=== PATIENT | female | born 1970 | race Caucasian/White ===

== ENCOUNTER 2022-06-01 12:03 | Inpatient (IN) | payer OTHER ==
[~2022-06-01] VITALS: Ht 152.4 cm; Wt 64.9 kg
[2022-06-01 12:59] VITALS: BP 125/73
[2022-06-01 14:16] LABS: BASOPHILS # (AUTO) 0.2 K/uL (0.00-0.22)
[2022-06-01 14:23] LABS: BASOPHILS % (AUTO) 1.1 % (0.0-2.0); HEMATOCRIT 33.4 % (36-48); HEMOGLOBIN 10.6 g/dL (12.0-16.0); LYMPHOCYTES # (AUTO) 0.3 K/uL (2.5-16.5); LYMPHOCYTES % (AUTO) 1.4 % (20.5-51.1); MEAN CORPUSCULAR HEMOGLOBIN 25 pg (27-31); MEAN CORPUSCULAR HGB CONC 32 g/dL (33-37); MEAN CORPUSCULAR VOLUME 79.8 fL (80-94); MONOCYTES % (AUTO) 4.7 % (1.7-9.3); NEUTROPHILS # (AUTO) 20.5 K/uL (1.8-7.7); NEUTROPHILS % (AUTO) 92.8 % (42.2-75.2); PLATELET COUNT (AUTO) 184 K/uL (140-450); RED BLOOD CELL COUNT(AUTO) 4.18 MIL/uL (4.20-5.40)
[2022-06-01 14:24] LABS: CREATININE 0.8 mg/dL (0.6-1.3); TOTAL BILIRUBIN 0.5 mg/dL (0.0-1.0)
[2022-06-01] MEDS ORDERED: cefTRIAXone 2,000 MG in DEXTROSE 5% 100 ML IV ONE (15:40)
[2022-06-01] MEDS ORDERED: NACL 0.9% 2,000 ML IV ONE (15:40)
[2022-06-01] MEDS ORDERED: cefTRIAXone 2,000 MG VIAL ONE (15:48)
[2022-06-01 16:39] LABS: APPEARANCE,URINE CLEAR (CLEAR); BILIRUBIN,URINE NEGATIVE (NEGATIVE); BLOOD, URINE 2+ (NEGATIVE); COLOR,URINE YELLOW (YELLOW); LEUKOCYTE ESTERASE ,URINE NEGATIVE (NEGATIVE); NITRITE, URINE NEGATIVE (NEGATIVE); UGLUCOSE NEGATIVE (NEGATIVE)
[2022-06-01 16:51] LABS: RBC,URINE 11-20 (MOD) /HPF (0-5); WBC,URINE 0-5 /HPF (0-5)
[2022-06-01] MEDS ORDERED: POTASSIUM CHLORIDE 10 MEQ TABER PO ONE (18:20)
[2022-06-01] MEDS ORDERED: CEPH-588 PO (18:22)
--- NOTE | 2022-06-01 18:51 | NUR ---
PATIENT IS TACHYCARDIC AND FEBRILE 101.7. DR. FLYNN SPOKE WITH THE PATIENT. PLAN IS FOR PATIENT TO STAY FOR IV ANTIBIOTIC INSTEAD TO DISCHARGE HOME. PATIENT IS AGREEABLE WITH PLAN OF CARE.
[2022-06-01] MEDS: NACL 0.9% 1,000 ML IV SCH (19:25)
[2022-06-01] MEDS ORDERED: ONDANSETRON 4 MG/2 ML VIAL IVP PRN (19:25)
[2022-06-01] MEDS ORDERED: HYDROcodone/APAP 5/325 MG 1 TAB TAB PO PRN (19:25)
[2022-06-01] MEDS ORDERED: MAGNESIUM OXIDE 400 MG TAB PO PRN (19:25)
[2022-06-01] MEDS ORDERED: KCL 20 MEQ IN 100 mL PREMIX 200 ML IV PRN (19:25)
[2022-06-01] MEDS ORDERED: MORPHINE SULFATE 4 MG/ML SYR IVP PRN (19:25)
--- NOTE | 2022-06-01 19:30 | NUR ---
51yo F to be admitted for urosepsis. Awake alert and oriented x 4. No complaints of pain. Pt tachycardia to 125, afebrile now. VS otherwise stable. Waiting on admitting bed.
[2022-06-01] MEDS ORDERED: cefTRIAXone 1,000 MG VIAL ONE (20:27)
--- NOTE | 2022-06-01 21:15 | NUR ---
Report to JANNETTE Sandhu. To be admitted to room 119A. All questions answered
--- NOTE | 2022-06-01 21:30 | NUR ---
RECEIVED PATIENT VIA GURNEY FROM ER. PT IS ALERT ORIENTED X4, NO COMPLAIN OF PAIN AT THIS TIME, PIV INTACT AND PATENTADMITTED D/T FEVER,CHILLS,HEADACHE
[2022-06-01] MEDS ORDERED: ACETAMINOPHEN 325 MG TAB PO PRN (22:15)
[2022-06-02] VITALS: BP 137/67
[2022-06-02 04:00] VITALS: BP 126/79
[2022-06-02 05:49] LABS: BASOPHILS % (AUTO) 0.1 % (0.0-2.0); HEMATOCRIT 31.2 % (36-48); LYMPHOCYTES # (AUTO) 0.8 K/uL (2.5-16.5); LYMPHOCYTES % (AUTO) 5.5 % (20.5-51.1); MEAN CORPUSCULAR HEMOGLOBIN 26 pg (27-31); MEAN CORPUSCULAR HGB CONC 32 g/dL (33-37); MEAN CORPUSCULAR VOLUME 79.9 fL (80-94); MONOCYTES # (AUTO) 0.4 K/uL (0.8-1.0); MONOCYTES % (AUTO) 2.6 % (1.7-9.3); NEUTROPHILS # (AUTO) 13.9 K/uL (1.8-7.7); NEUTROPHILS % (AUTO) 91.8 % (42.2-75.2); PLATELET COUNT (AUTO) 113 K/uL (140-450); RED CELL DISTRIBUTION WIDTH 26.4 % (11.6-13.7); WHITE BLOOD COUNT (AUTO) 15.2 K/uL (4.8-10.8)
--- NOTE | 2022-06-02 07:21 | NUR ---
ENDORSED PT TO AM NURSE FOR CONTINUITY OF CARE. PT IS STABLE
[2022-06-02 07:27] LABS: ALBUMIN 3.4 g/dL (3.4-5.0); CARBON DIOXIDE 23.1 mmol/L (21-32); CREATININE 0.7 mg/dL (0.6-1.3); MAGNESIUM 1.8 mg/dL (1.8-2.4); POTASSIUM 3.1 mmol/L (3.5-5.1); TOTAL BILIRUBIN 0.3 mg/dL (0.0-1.0)
--- NOTE | 2022-06-02 07:29 | NUR ---
RECEIVED PATIENT FROM PULLMAN CAR REPAIRER NURSE,PATIENT IS LAYING IN BED,VERBALLY RESPONSIVE,ALL SAFETY MEASURES IN PLACE.SCALL LIGHT WITHIN REACH.POC DISCUSSED.WILL CONTINUE TO MONITOR.
[2022-06-02] MEDS: NACL 0.9% 1,000 ML IV SCH ×2 (07:55→20:25)
[2022-06-02 08:00] VITALS: BP 130/81
[2022-06-02] MEDS: POTASSIUM CHLORIDE 10 MEQ TABER PO PRN (09:08)
--- NOTE | 2022-06-02 09:08 | NUR ---
PATIENT HAS BEEN SCREENED AND CATEGORIZED MODERATE NUTRITION RISK. PATIENT WILL BE SEEN WITHIN 3-5 DAYS OF ADMISSION. / REVIEWED BY HEATH BALDERAS RD
[2022-06-02 12:00] VITALS: BP 139/76
[2022-06-02] MEDS ORDERED: CALCIUM GLUC 1 GM/50 mL NS BAG 100 ML IV SCH (12:00)
--- NOTE | 2022-06-02 12:11 | NUR ---
FREQUENT ROUNDS DONE.ON NS 80 ML/HR.NOTIFIED MD REGARDING THE LOW K./CA LEVEL.ADMINISTERED MEDICATIONS PER PRN ORDERS.
[2022-06-02 16:00] VITALS: BP 130/75
--- NOTE | 2022-06-02 19:30 | NUR ---
ENDORSED PATIENT TO SAUSAGE STUFFER NURSE FOR THE CONTINUITY OF CARE.
--- NOTE | 2022-06-02 19:31 | NUR ---
RECEIVED PATIENT SITTING ON THE CHAIR, PATIENT IS AWAKE, ALERT AND ORIENTED, FAMILY AT BEDSIDE, NO SIGNS OF DISTRESS NOTED, DENIES PAIN UPON ASSESSMENT. IV SITE ON LEFT AC RUNNING NS @80ML/HR. CALL LIGHT WITHIN REACH.
[2022-06-02 20:00] VITALS: BP 128/72
--- NOTE | 2022-06-02 21:30 | NUR ---
SCHEDULED MEDICATION GIVEN ORDERED
[2022-06-03] VITALS: BP 115/71
--- NOTE | 2022-06-03 02:12 | NUR ---
PATIENT IS ASLEEP, BREATHING EVEN AND NON LABORED ON ROOM AIR, CALL LIGHT WITHIN REACH.
[2022-06-03 04:00] VITALS: BP 112/66
[2022-06-03] MEDS: NACL 0.9% 1,000 ML IV SCH (05:36)
[2022-06-03 05:38] LABS: BASOPHILS # (AUTO) 0.1 K/uL (0.00-0.22); BASOPHILS % (AUTO) 1.8 % (0.0-2.0); EOSINOPHILS % (AUTO) 0.2 % (0.0-4.0); HEMATOCRIT 27.3 % (36-48); HEMOGLOBIN 8.9 g/dL (12.0-16.0); LYMPHOCYTES # (AUTO) 1.4 K/uL (2.5-16.5); LYMPHOCYTES % (AUTO) 20.7 % (20.5-51.1); MEAN CORPUSCULAR HEMOGLOBIN 26 pg (27-31); MEAN CORPUSCULAR HGB CONC 33 g/dL (33-37); MEAN CORPUSCULAR VOLUME 80.4 fL (80-94); MONOCYTES # (AUTO) 0.7 K/uL (0.8-1.0); MONOCYTES % (AUTO) 10.3 % (1.7-9.3); NEUTROPHILS # (AUTO) 4.5 K/uL (1.8-7.7); PLATELET COUNT (AUTO) 197 K/uL (140-450); RED BLOOD CELL COUNT(AUTO) 3.39 MIL/uL (4.20-5.40); WHITE BLOOD COUNT (AUTO) 6.7 K/uL (4.8-10.8)
[2022-06-03 06:31] LABS: ALBUMIN 3.1 g/dL (3.4-5.0); ANION GAP 12.4 (8-16); CARBON DIOXIDE 22.7 mmol/L (21-32); CREATININE 0.6 mg/dL (0.6-1.3); MAGNESIUM 1.8 mg/dL (1.8-2.4); POTASSIUM 3.1 mmol/L (3.5-5.1); TOTAL BILIRUBIN 0.2 mg/dL (0.0-1.0)
--- NOTE | 2022-06-03 07:22 | NUR ---
ENDORSED PATIENT TO DAY NURSE FOR CONTINUITY OF CARE. NEEDS MET THROUGHOUT THE SHIFT. PATIENT IN STABLE CONDITION.
--- NOTE | 2022-06-03 07:36 | NUR ---
RECEIVED PATIENT FROM TECHNICAL SERVICES CONSULTANT NURSE.PATIENT IS ALERT ORIENTED.NO SIGNS OF DISTRESS NOTED.CALL LIGHT WITHIN REACH.WILL CONTINUE TO MONITOR.
[2022-06-03] MEDS: POTASSIUM CHLORIDE 10 MEQ TABER PO PRN (09:41)
[2022-06-03] MEDS ORDERED: CEPH-588 PO (13:15)
[2022-06-03] MEDS ORDERED: CALCIUM GLUC 1 GM/50 mL NS BAG 100 ML IV SCH (14:00)
[2022-06-03] MEDS ORDERED: CALCIUM GLUCONATE 10% 1,000 MG in NACL 0.9% 50 ML IV SCH (15:30)
[2022-06-03 15:44] VITALS: BP 130/75
[2022-06-03 15:58] VITALS: BP 130/75
--- NOTE | 2022-06-03 17:30 | NUR ---
DISCHARGED THE PATIENT HOME PER MD ORDERS ID BAND REMOVED,TELEMONITORS REMOVED.IV LINE REMOVED.DISCHARGE INSTRUCTIONS GIVEN .HANDED OVER DISCHARGE PACKETS.
--- NOTE | 2022-06-08 14:20 | NUR ---
SAUL HARRISON: CALLED DR. MAC DO OFFICE LOCATED AT [address] [place] [id number] . SPOKE WITH TROY AND SHE INFORMED ME THAT PT ALREADY MADE A FOLLOW UP APT FOR 06/15/22 AT 1430.
== END 2022-06-03 17:45 | disposition home or self-care (01) | DRG 720 ==
LOC: MED 12:03 → MTU 19:24
PROVIDERS: ADMIT Student in an Organized Health Care Education/Training Program; ATTEND Student in an Organized Health Care Education/Training Program
DX: A41.9 Sepsis, unspecified organism (principal); E83.51 Hypocalcemia; I10 Essential (primary) hypertension; N39.0 Urinary tract infection, site not specified; Z20.822 Contact with and (suspected) exposure to COVID-19; Z88.8 Allergy status to other drugs, medicaments and biological substances; Z79.899 Other long term (current) drug therapy; R71.0 Precipitous drop in hematocrit
CPT/HCPCS: 36415; 71045; 80053; 81001; 83605; 83735; 85025; 87040; 87081; 87086; 96374; 99291; J0610; J0696; J1644; J7060; Q0092; Q9967